=== PATIENT | male | born 1990 | race Caucasian/White ===

== ENCOUNTER 2022-02-13 07:41 | Day surgery (SDC) | payer BC ==
[~2022-02-13 07:41] MED LIST: Acetaminophen 1,000 MG in Premix Bag 1 BAG IV SCH; Lactated Ringers 1,000 ML IV SCH; Pregabalin 75 MG Cap PO SCH; cefOXitin 2 GM in Premix Bag 1 BAG IV SCH
[2022-02-13] MEDS ORDERED: Scopolamine 1.5 MG Transdermal Patch ONE (08:17)
[2022-02-13] MEDS ORDERED: Naloxone 0.4 MG/ML SDV IVPUSH PRN (08:29)
[2022-02-13] MEDS ORDERED: HYDROmorphone 1 MG/ML Syringe IVPUSH PRN (08:29)
[2022-02-13] MEDS ORDERED: fentaNYL 100 MCG/2 ML SDV IVPUSH PRN (08:29)
[2022-02-13] MEDS ORDERED: Metoclopramide 10 MG/2 ML SDV IVPUSH PRN (08:29)
[2022-02-13] MEDS ORDERED: Ondansetron 4 MG/2 ML SDV IVPUSH PRN (08:29)
[2022-02-13] MEDS ORDERED: Albuterol 0.083% 2.5 MG/3 ML Neb Soln NEB PRN (08:29)
[2022-02-13] MEDS ORDERED: Octyl 2-Cyanoacrylate 1 Tube ONE (09:04)
[2022-02-13] MEDS ORDERED: Bupivacaine 0.25% 10 ML SDV ONE (09:05)
[2022-02-13] MEDS ORDERED: Ondansetron 4 MG/2 ML SDV ONE (09:18)
[2022-02-13] MEDS ORDERED: Midazolam 1 MG/ML 2 ML SDV ONE (09:18)
[2022-02-13] MEDS ORDERED: fentaNYL 100 MCG/2 ML SDV ONE (09:18)
[2022-02-13] MEDS ORDERED: Propofol 200 MG/20 ML SDV ONE (09:18)
[2022-02-13] MEDS ORDERED: Dexamethasone 4 MG/ML 5 ML MDV ONE (09:19)
[2022-02-13] MEDS ORDERED: Rocuronium Bromide 50 MG/5 ML Syringe ONE ×2 (09:19→09:49)
[2022-02-13] MEDS ORDERED: Sugammadex Sodium 200 MG/2 ML VIAL ONE (09:19)
[2022-02-13] MEDS ORDERED: Glycopyrrolate 0.2 MG/ML SDV ONE (09:19)
[2022-02-13] MEDS ORDERED: Ketorolac 30 MG/ML SDV ONE (09:19)
[2022-02-13] MEDS ORDERED: Water For Injection, Sterile 20 ML ONE (09:20)
[2022-02-13] MEDS ORDERED: ceFAZolin 1 GM Vial ONE (09:20)
[2022-02-13] MEDS ORDERED: cefOXitin 1 GM Vial ONE (09:36)
[2022-02-13] MEDS ORDERED: HYDROmorphone 2 MG/ML Syringe ONE (09:43)
[2022-02-13] MEDS ORDERED: ePHEDrine 50 MG/ML SDV ONE (10:03)
== END 2022-02-13 14:43 | disposition home or self-care (01) ==
LOC: MW.SDS 07:41
PROVIDERS: ATTEND Surgery
DX: K81.1 Chronic cholecystitis (principal); K82.8 Other specified diseases of gallbladder
CPT/HCPCS: 47562; A9270; J0131; J0690; J0694; J1100; J1170; J1885; J2250; J2405; J2704; J3010; J3490; J7120